=== PATIENT | female | born 1990 | race Caucasian/White ===

== ENCOUNTER 2021-01-09 09:43 | Emergency (ER) | payer OTHER, SELFPAY ==
--- NOTE | ~2021-01-09 | US_ITS ---
EXAMINATION: US PELVIS CLINICAL INFORMATION: Pelvic pain; rule out ovarian torsion COMPARISON: CT 02/01/2017 TECHNIQUE: Transabdominal ultrasound of the pelvis is performed. The patient declined endovaginal examination. FINDINGS: Uterus: The uterus is anteverted and measures 8 x 4.9 x 3.2 cm. The double wall endometrial thickness is 5 mm. The uterus is smooth in contour and has normal myometrial echogenicity. No visible fibroid. Adnexa: Both ovaries are visualized. There is normal color flow to the adnexa. There is no ovarian torsion. There is free fluid in the cul-de-sac. Right ovary measures 3.6 x 3.3 x 1.8 cm. No adnexal mass is seen. Left ovary measures 4 x 2.3 x 2 cm. No adnexal mass is seen. US/US pelvic complete IMPRESSION: No evidence of adnexal mass or ovarian torsion. Small amount of free fluid in the cul-de-sac, nonspecific and possibly physiologic.
--- NOTE | ~2021-01-09 | US_ITS ---
EXAMINATION: US RETROPERITONEAL LIMITED (RENAL ONLY) CLINICAL INFORMATION: Pain. Possible stone. COMPARISON: CT abdomen and pelvis 02/01/2017 TECHNIQUE: Ultrasound of the kidneys is performed using grayscale imaging and color Doppler. FINDINGS: RIGHT KIDNEY: 11.2 x 4.4 x 4.8 cm (SAG x AP x TRV). The kidney is normal in size, contour, and echogenicity. Renal cortical thickness is normal. No calculi or focal parenchymal lesions. No hydronephrosis. LEFT KIDNEY: 11.4 x 5.3 x 5.6 cm (SAG x AP x TRV). The kidney is normal in size, contour, and echogenicity. Renal cortical thickness is normal. No calculi or focal parenchymal lesions. No hydronephrosis. US/US renal BI IMPRESSION: No hydronephrosis or visible calculi.
[2021-01-09 10:53] VITALS: BP 117/72; PULSE 84; RESP 16; TEMP 36.3; O2SAT 100; BMI 25.8
[2021-01-09 11:08] LABS: Appearance Urine CLEAR; Color Urine DK YELLOW; Glucose Urine UA NEG (NEG); Leukocyte Esterase Urine NEG (NEG); PH 5.5 (5.0-8.0); Specific Gravity - Urine 1.025 (1.005-1.025); Urine Blood NEG (NEG); Urine Protein TRACE MG/DL (NEG-TRACE)
[2021-01-09 11:19] LABS: UACC Culture Trigger NO
[2021-01-09 11:20] LABS: RBC Urine 0-2 /HPF (0); Squamous Epithelial Cell Urine 1+ /LPF; WBC Urine 0 /HPF (0-4)
--- NOTE | 2021-01-09 13:05 | ED_ITS ---
HPI - Female Genitourinary General Chief complaint: Urogenital-Female Stated complaint: UTI Time Seen by Provider: 01/09/21 12:35 History of Present Illness HPI Narrative: Patient is a 30-year-old female presents today with having pain on urination. Increasing frequency. Patient was treated for urinary tract infection on Friday with 3 day course of Bactrim. Did not improve. Patient took 1 additional dose of Macrobid from her primary physician. Now is developing low-grade fever now is having nausea, vomiting. Generalized malaise. Positive pain to the flank area. Bilaterally. Patient denies any diaphoresis. Patient does not think she is . No coughing or congestion or upper respiratory symptoms. No significant past medical history. Patient is from home. No vaginal discharge. Patient denies any change in bowel movement. Patient is status post appendectomy. Sexually active 1 partner uses condom some time Related Data Previous Rx's Medication Instructions Recorded ondansetron HCl 4 mg tablet 4 mg PO Q8H PRN #10 tab 01/09/21 (Zofran) Allergies Allergy/AdvReac Type Severity Reaction Status Date / Time sumatriptan [From IMITREX] Allergy Intermediate UNKNOWN Unverified 01/13/20 17:04 kiwi [KIWI] Allergy Mild HIVES Unverified 01/13/20 17:04 omeprazole [From PRILOSEC] Allergy Unknown HIVES Unverified 01/13/20 17:04 prednisone [PREDNISONE] Allergy Unknown BIPOLAR Unverified 01/13/20 17:04 EPISODES SEASONAL ALLERGIES Allergy Intermediate RUNNY NOSE Uncoded 01/13/20 17:04 Review of Systems 2 Review of Systems: Positive subjective fever Positive nausea Positive generalized malaise Positive flank pain Yes all other systems are reviewed and are negative PMFSH Social History Social History Alcohol intake: never Smoked in Last 30 Days: No Use of substances other than those prescribed or required for medical reasons: No Advance Directives: No Advance Directives Information Provided: No Physical Exam Vital Signs: Vital Signs: Last Vital Signs Temp 98.8 F 01/09/21 13:54 Pulse 64 01/09/21 13:54 Resp 16 01/09/21 10:53 BP 114/71 01/09/21 13:54 Pulse Ox 100 01/09/21 10:53 Body Mass Index 25.8 Appearance: Alert. Oriented X3. No acute distress. Eyes: Pupils equal, round and reactive to light. ENT: Pharynx normal. Neck: Normal inspection. Neck supple. No lymph nodes noted. No crepitus CVS: Normal heart rate and rhythm. Pulses normal. Normal S1 and S2 Respiratory: No respiratory distress. Breath sounds normal. No Wheezing. No rales Abdomen: Soft and nontender. No rigidity. No distention. good BS x4 Skin: Skin warm and dry. Normal skin color. Normal skin turgor. Extremities: No lower extremity edema. Neurovascular intact to all extremities. No Lacerations. No Rash Neuro: Oriented X 3. No motor deficit. No sensory deficit. Moving all extermities. No slurred speech MDM - Female Genitourinary MDM Narrative Medical decision making narrative: Patient no distress. White count is normal. Urine negative for infection. Status post appendectomy making appendicitis unlikely. Ultrasound negative for any acute evidence of hydro making renal colic unlikely in the setting of no blood in the urine. No fever no chills. Will send off urine sample for GC chlamydia. Patient denies any vaginal di scharge. Has OBGYN wants to follow up with her. Ultrasound of the pelvis is still pending. Ultrasound of the abdomen positive for small amount of fluid. Will send off GC chlamydia screen. Will discharge patient home. Repeat abdominal exam is soft nontender. Explained to patient's small risk of STDs still exist. Motrin for pain. 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 In stable condition. Differential Diagnosis Differential diagnosis: Likely urinary tract infection, cervicitis, ovarian cyst and ruptured ovarian cyst Lab Data Result diagrams: 01/09/21 13:53 01/09/21 13:53 Labs: Lab Results 01/09/21 01/09/21 01/09/21 Range/Units 11:00 13:53 13:53 WBC 6.9 (4.8-10.8) X10*3/uL RBC 4.48 (4.20-5.50) X10*6/uL Hgb 13.9 (12.0-16.0) g/dl Hct 40.8 (37-47) % MCV 91.1 (80-98) fL MCH 31.0 (27.0-33.0) pg MCHC 34.1 (31.0-35.0) g/dl RDW 12.4 (11.0-16.0) % Plt Count 294 (160-400) X10*3/uL MPV 8.7 L (9.4-12.3) fL Immature Gran % (Auto) 0.6 H (0.0-0.4) % Neut % (Auto) 60.6 (45-73) % Lymph % (Auto) 30.1 (20-40) % Stoddard % (Auto) 7.0 (2-11) % Eos % (Auto) 1.3 (0-4) % Baso % (Auto) 0.4 (0-2) % Lymph # (Auto) 2.1 (1.2-4.9) X10*3/uL Stoddard # (Auto) 0.5 (0.1-1.2) X10*3/uL Eos # (Auto) 0.1 (0.0-0.4) X10*3/uL Baso # (Auto) 0.0 (0.0-0.2) X10*3/uL Abs Immat Gran (auto) 0.04 H (0.00-0.03) X10*3/uL Absolute Neuts (auto) 4.2 (2.0-8.3) X10*3/uL Absolute Nucleated RBC 0.000 (0.0-0.012) X10*3/uL Nucleated RBC % (auto) 0.0 (0.0-0.2) /100WBC Sodium (135-145) mmol/L Potassium (3.3-5.1) mmol/L Chloride (96-108) mmol/L Carbon Dioxide (22-29) mmol/L Anion Gap (12-20) BUN (9-16) mg/dL Creatinine (0.5-1.4) mg/dL Estim Creat Clear Calc Estimated GFR Random Glucose (60-115) mg/dL Calcium (8.4-10.2) mg/dL Total Bilirubin (0.0-1.0) mg/dL Direct Bilirubin (0.0-0.5) mg/dL AST (5-31) U/L ALT (0-31) U/L Alkaline Phosphatase (39-117) U/L Total Protein (6.5-8.0) g/dL Albumin (3.5-5.0) g/dL Urine Color DK YELLOW Urine Appearance CLEAR Urine pH 5.5 (5.0-8.0) Ur Specific [place] 1.025 (1.005-1.025) Urine Protein TRACE (NEG-TRACE) MG/DL Urine Glucose (UA) NEG (NEG) MG/DL Urine Ketones SEE NOTE (NEG) MG/DL Urine Blood NEG (NEG) Urine Nitrite SEE NOTE (NEG) Ur Leukocyte Esterase NEG (NEG) Urine RBC 0-2 (0) /HPF Urine WBC 0 (0-4) /HPF Ur Squamous Epith Cells 1+ /LPF Urine Bacteria NONE /LPF Urine Test NEGATIVE (NEGATIVE) 01/09/21 01/09/21 Range/Units 13:53 13:53 WBC (4.8-10.8) X10*3/uL RBC (4.20-5.50) X10*6/uL Hgb (12.0-16.0) g/dl Hct (37-47) % MCV (80-98) fL MCH (27.0-33.0) pg MCHC (31.0-35.0) g/dl RDW (11.0-16.0) % Plt Count (160-400) X10*3/uL MPV (9.4-12.3) fL Immature Gran % (Auto) (0.0-0.4) % Neut % (Auto) (45-73) % Lymph % (Auto) (20-40) % Stoddard % (Auto) (2-11) % Eos % (Auto) (0-4) % Baso % (Auto) (0-2) % Lymph # (Auto) (1.2-4.9) X10*3/uL Stoddard # (Auto) (0.1-1.2) X10*3/uL Eos # (Auto) (0.0-0.4) X10*3/uL Baso # (Auto) (0.0-0.2) X10*3/uL Abs Immat Gran (auto) (0.00-0.03) X10*3/uL Absolute Neuts (auto) (2.0-8.3) X10*3/uL Absolute Nucleated RBC (0.0-0.012) X10*3/uL Nucleated RBC % (auto) (0.0-0.2) /100WBC Sodium 138 (135-145) mmol/L Potassium 3.9 (3.3-5.1) mmol/L Chloride 108 (96-108) mmol/L Carbon Dioxide 23 (22-29) mmol/L Anion Gap 11 L (12-20) BUN 7 L (9-16) mg/dL Creatinine 0.70 (0.5-1.4) mg/dL Estim Creat Clear Calc 124.1 Estimated GFR > 60 Random Glucose 84 (60-115) mg/dL Calcium 9.4 (8.4-10.2) mg/dL Total Bilirubin 0.6 (0.0-1.0) mg/dL Direct Bilirubin 0.2 (0.0-0.5) mg/dL AST 12 (5-31) U/L ALT 10 (0-31) U/L Alkaline Phosphatase 71 (39-117) U/L Total Protein 7.1 (6.5-8.0) g/dL Albumin 4.4 (3.5-5.0) g/dL Urine Color Cancelled Urine Appearance Cancelled Urine pH Cancelled (5.0-8.0) Ur Specific [place] Cancelled (1.005-1.025) Urine Protein Cancelled (NEG-TRACE) MG/DL Urine Glucose (UA) Cancelled (NEG) MG/DL Urine Ketones Cancelled (NEG) MG/DL Urine Blood Cancelled (NEG) Urine Nitrite Cancelled (NEG) Ur Leukocyte Esterase Cancelled (NEG) Urine RBC (0) /HPF Urine WBC (0-4) /HPF Ur Squamous Epith Cells /LPF Urine Bacteria /LPF Urine Test (NEGATIVE) Discharge Plan Discharge Clinical Impression: Abdominal pain Patient Disposition: Home, Self-Care Instructions: Abdominal Pain (ED) Prescriptions: New ondansetron HCl [Zofran] 4 mg tablet 4 mg PO Q8H PRN (Reason: nausea and vomiting) Qty: 10 RF: 0 Referrals: Yuridia Lara PA-C [Primary Care Provider] - 2 days (Please also follow-up with your OBGYN doctor on an outpatient basis.)
[2021-01-09 13:54] VITALS: BP 114/71; PULSE 64; TEMP 37.1
[2021-01-09] MEDS: Ketorolac Tromethamine 15 MG/ML VIAL 30 MG IVPUSH (14:00)
[2021-01-09] MEDS: ondansetron HCL 4 MG/2 ML VIAL IVPUSH (14:00)
[2021-01-09 14:01] LABS: MANUAL DIFF FLAG NO
[2021-01-09] MEDS: 0.9 % Sodium Chloride 1,000 ML 999 ML IV (14:01)
[2021-01-09 14:09] LABS: Basophils Percent Auto 0.4 % (0-2); Eosinophils Absolute Auto 0.1 X10*3/uL (0.0-0.4); Eosinophils Percent Auto 1.3 % (0-4); Hematocrit 40.8 % (37-47); Hemoglobin 13.9 g/dl (12.0-16.0); Imm Gran Abs Auto 0.04 X10*3/uL (0.00-0.03); Imm Gran Pct Auto 0.6 % (0.0-0.4); Lymphocytes Absolute Auto 2.1 X10*3/uL (1.2-4.9); Lymphocytes Percent Auto 30.1 % (20-40); Mean Corpuscular HGB Conc 34.1 g/dl (31.0-35.0); Mean Corpuscular Volume 91.1 fL (80-98); Mean Platelet Volume 8.7 fL (9.4-12.3); Monocytes Absolute Auto 0.5 X10*3/uL (0.1-1.2); Neutrophils Absolute Auto 4.2 X10*3/uL (2.0-8.3); Neutrophils Percent Auto 60.6 % (45-73); Platelet Count 294 X10*3/uL (160-400); Red Blood Count 4.48 X10*6/uL (4.20-5.50); Red Cell Distribution Width 12.4 % (11.0-16.0); White Blood Count 6.9 X10*3/uL (4.8-10.8)
[2021-01-09 14:10] LABS: UPreg QC Valid YES; Urine Pregnancy NEGATIVE (NEGATIVE)
[2021-01-09 14:21] LABS: Alanine Aminotransferase 10 U/L (0-31); Albumin Level 4.4 g/dL (3.5-5.0); Alkaline Phosphatase 71 U/L (39-117); Anion Gap 11 (12-20); Aspartate Amino Transferase 12 U/L (5-31); Bilirubin Direct 0.2 mg/dL (0.0-0.5); Bilirubin Total 0.6 mg/dL (0.0-1.0); Blood Urea Nitrogen 7 mg/dL (9-16); Calcium 9.4 mg/dL (8.4-10.2); Carbon Dioxide 23 mmol/L (22-29); Chloride 108 mmol/L (96-108); Creatinine Clr Calc Pharmacy 124.1; Estimated Glomerular Filt Rate > 60; Glucose Random 84 mg/dL (60-115); Potassium 3.9 mmol/L (3.3-5.1); Sodium 138 mmol/L (135-145); Total Protein 7.1 g/dL (6.5-8.0)
[2021-01-10 02:43] LABS: CT PCR NOT DETECTED (Not Detect.); NG PCR NOT DETECTED (Not Detect.)
== END 2021-01-09 18:32 | disposition home or self-care (01) ==
PROVIDERS: Emergency Provider Emergency Medicine Emergency Medical Services; PCP Physician Assistant Medical
DX: R10.9 Unspecified abdominal pain (principal); R30.0 Dysuria; Z79.899 Other long term (current) drug therapy
CPT/HCPCS: 36415; 76775; 76856; 80048; 80076; 81001; 81003; 81025; 85025; 87491; 87591; 96361; 96374; 96375; 99284; J1885; J2405

== ENCOUNTER 2021-06-13 09:15 | Outpatient (RCR) | payer OTHER, SELFPAY ==
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
[2021-05-11 13:38] VITALS: BMI 25.0
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
--- NOTE | 2021-05-14 15:39 | HO.PHPPROGNO ---
Subjective Subjective Date of Service: 05/14/21 Reason For Visit: Depression, Anxiety, Bipolar II, PTSD Guardianship: No Medical Problems Affecting Mental Status: No Interim History: Tiffany reports ?I am not doing great, but making it through the day so far. My meds are not working ?. Reports dysphoric, anxious mood. No thoughts of harm to self or others, no safety concern. Medication Compliance: Yes Side effects from medications: No Attending Groups: No Review of Systems Acute medical concerns: No Medical Review of Systems: changed Review of Systems Review of Systems Yes all other systems are reviewed and are negative Constitutional: Reports no additional constitutional complaints Mental Status Exam Mental Status Exam Narrative: Well-developed, well-nourished female, in NAD. No tics/tremors, no involuntary movements noted. Client sitting up, fully attentive during interview. Tearful at times. Patient Appearance: Well Grooomed, Fatigued and Appropriate Patient Orientation: Person, Place, Time and Situation Level of Consciousness: Awake, Appropriate and Alert Patient Behavior: Appropriate, Cooperative, Good Eye Contact and Crying (Tearful at times.) Mood Description: Appropriate, Depressed and Anxious Affect Description: Appropriate, Depressed and Anxious Patient Cognition Impaired: No Ability to Follow Directions: Excellent Speech Pattern: Clear, Appropriate and Coherent Memory Description: Intact Hallucinations: None Thought Process: Rumination Thought Content: positive for Intact Depressive Symptoms: Increased Anxiety, Increased Irritability, Difficulty Sleeping, Crying Spells, Sleeping More Than Usual, Loss of Int. in Activity, Feelings of Worthlessness, Hopelessness, Feelings of Guilt, Unhappiness, Increased Fatigue, Low Self Esteem, Loss of Energy and Difficulty Concentrating Judgement: Fair Diagnostics Vital Signs (24Hr): BMI result Body Mass Index 25.0 Assessment & Plan Assessment & Plan (1) Major depressive disorder, recurrent severe without psychotic features: Status: Acute Code(s): F33.2 - Major depressive disorder, recurrent severe without psychotic features Assessment and Plan: Client continues struggling with dysphoric mood, anxiety. Reports had some vomiting early this morning related to severe anxiety. Took exam and X this morning afterwards, still continues with some anxious mood. No SI today, reports feels safe. Request assistance with [place] paperwork. (2) ALIYAH (generalized anxiety disorder): Status: Acute Code(s): F41.1 - Generalized anxiety disorder Assessment and Plan: Reports current medications are not helping with severe anxiety symptoms. She does see her outpatient provider tomorrow. Discussed adding a p.r.n. medications such as hydroxyzine. She is willing to try it. (3) Chronic post-traumatic stress disorder (PTSD): Status: Acute Code(s): F43.12 - Post-traumatic stress disorder, chronic Assessment and Plan: 1. Start hydroxyzine 50 mg b.i.d. p.r.n. for anxiety. Seven day supply sent to pharmacy. 2. Client to see outpatient provider tomorrow, will follow up as per protocol here. 3. Complete [facility] paperwork and return to client. 4. Continue all other current medications as prescribed. Patient educated on: diagnosis, medication risk/benefits and therapeutic strategies Informed Consent: understands Reason for contiued partial hosp. stay Substantial Risk for: harm to self, inability to function and med/psych decompensation Certification I certify that partial hospital treatment is medically necessary due to the symptoms and problems resulting from the patient's mental illness and the failure to treat the patient at the partial hospital level of care would likely result in the patient requiring inpatient psychiatric care which could not be prevented at a less intensive level of care. I spent minutes with the patient and/or on the patient floor today, greater than?50% of which was spent counseling/coordinating care. Discharge Plan Discharge Attending provider: Ajith Licea Primary Care Provider: Yuridia Lara Medications: New hydroxyzine pamoate [Vistaril] 50 mg capsule 50 mg PO BID PRN (Reason: anxiety) 14 Days Qty: 14 RF: 0 No Action alprazolam [Xanax] 0.5 mg Tablet 0.5 mg PO BID PRN (Reason: Anxiety) RF: 0 propranolol 40 mg Tablet 40 mg PO BEDTIME RF: 0 oxcarbazepine [Trileptal] 600 mg Tablet 300 mg PO DAILY RF: 0 oxcarbazepine [Trileptal] 600 mg Tablet 600 mg PO BEDTIME RF: 0 albuterol sulfate 90 mcg/actuation Hfa Aerosol Inhaler 2 puff INHALATION Q4H PRN (Reason: Shortness Of Breath) RF: 0 propranolol 20 mg Tablet 20 mg PO DAILY RF: 0 bupropion HCl [Wellbutrin XL] 300 mg Tablet Extended Release 24 Hr 300 mg PO QAM RF: 0 bupropion HCl [Wellbutrin XL] 150 mg Tablet Extended Release 24 Hr 150 mg PO DAILY RF: 0 trazodone 50 mg Tablet 50 - 100 mg PO BEDTIME PRN (Reason: Insomnia) RF: 0 buspirone 10 mg Tablet 20 mg PO BID RF: 0 Referrals: Yuridia Lara PA-C [Primary Care Provider] - 1 Week Telehealth Telehealth Location of provider rendering services: practice address Location of patient: address on file Patient Identification confirmed using: Name, : Yes Telehealth method: video Patient verbally consented to treatment: Yes Patient verbally consented to billing insurance company: Yes Patient informed of any privacy concerns related to visit: Yes Time spent with patient (mins): 15
--- NOTE | 2021-05-14 16:42 | PC.NURSE ---
Case opened in treatment team.
--- NOTE | 2021-05-18 12:37 | PC.NURSE ---
Patient reports medication changes made by her outside provider. Patient reports Xanax d/c, added Clonazepam 0.5 mg BID and Oxcarbazapine 300 mg in the afternoo. Ann Blair NP is aware.
--- NOTE | 2021-05-21 13:24 | HO.PHPPROGNO ---
Subjective Subjective Date of Service: 05/21/21 Reason For Visit: Depression, Anxiety, Bipolar II, PTSD Guardianship: No Medical Problems Affecting Mental Status: No Interim History: When asked about mood, reports not really sure . Continues with passive SI. Client reports poor sleep, nightmares. Continues with depressive and anxiety symptoms. AM vomiting has stopped. Reports recent med changes have been somewhat helpful. Side effects from medications: No Attending Groups: Yes Review of Systems Acute medical concerns: No Medical Review of Systems: unchanged Review of Systems Review of Systems Yes all other systems are reviewed and are negative Constitutional: Reports no additional constitutional complaints Mental Status Exam Mental Status Exam Narrative: Well-developed, well-nourished female, in NAD. No tics/tremors, no involuntary movements noted. Client sitting up, fully attentive during interview. Anxious and depressed mood and affect, tearful. Patient Appearance: Well Grooomed and Appropriate Patient Orientation: Person, Place, Time and Situation Level of Consciousness: Awake, Appropriate and Alert Patient Behavior: Appropriate, Cooperative, Good Eye Contact and Crying Mood Description: Depressed and Anxious Affect Description: Depressed and Anxious Patient Cognition Impaired: No Ability to Follow Directions: Excellent Speech Pattern: Clear, Appropriate and Coherent Memory Description: Intact Hallucinations: None Thought Process: Rumination Thought Content: positive for Intact and positive for Suicidal Ideation (passiv, no plan/intent) Depressive Symptoms: Increased Anxiety, Difficulty Sleeping, Crying Spells, Loss of Int. in Activity, Feelings of Worthlessness, Hopelessness, Feelings of Guilt, Unhappiness, Thoughts of /Suicide, Low Self Esteem and Difficulty Concentrating Judgement: Fair Diagnostics Vital Signs (24Hr): BMI result Body Mass Index 25.0 Assessment & Plan Assessment & Plan (1) Major depressive disorder, recurrent severe without psychotic features: Status: Acute Code(s): F33.2 - Major depressive disorder, recurrent severe without psychotic features Assessment and Plan: Continues with dysphoric mood. Met with outpatient psych provider last week, had medication changes. Xanax has been changed to klonopin. Trileptal is now 300mg BID, and 600mg at bedtime. Client reports that her morning nausea and vomiting has resolved somewhat. She believes now that this will allow her to absorb the therapeutic level doses of her medications, as she believes that due to N&V, she had not been able to digest the full doses in the past. She was tearful, and states that she needs to let the medications work . She expressed anxiety regarding being able to return to work in May, and she is afraid that she will not be ready by the time her leave is done. She also reports difficulty dealing with things in my personal life . She states she is trying to use the coping skills learned in groups. Client reports nightmares continue, and poor sleep as a result. Discussed her sleeping medication. She has trazodone 50mg ordered, but she takes only a partial amount, as she feels it makes it too difficult to wake up in the morning if she takes the full dose. She is already taking propanolol 40mg at bedtime, says prazosin makes her blood pressure bottom out due to the other medication. (2) Chronic post-traumatic stress disorder (PTSD): Status: Acute Code(s): F43.12 - Post-traumatic stress disorder, chronic Assessment and Plan: Continues with nightmares r/t ptsd. Unable to wake self up during the nightmares. Assessment and Plan: 1. Continue with current medications as prescribed. 2. Continue with [facility] plan of care. 3. Follow-up as per protocol. Patient educated on: diagnosis, medication risk/benefits and therapeutic strategies Informed Consent: understands Reason for contiued partial hosp. stay Substantial Risk for: harm to self, inability to function and med/psych decompensation Certification I certify that partial hospital treatment is medically necessary due to the symptoms and problems resulting from the patient's mental illness and the failure to treat the patient at the partial hospital level of care would likely result in the patient requiring inpatient psychiatric care which could not be prevented at a less intensive level of care. I spent minutes with the patient and/or on the patient floor today, greater than?50% of which was spent counseling/coordinating care. Discharge Plan Discharge Attending provider: Ajith Licea Primary Care Provider: Yuridia Lara Medications: New hydroxyzine pamoate [Vistaril] 50 mg capsule 50 mg PO BID PRN (Reason: anxiety) 14 Days Qty: 14 RF: 0 No Action propranolol 40 mg Tablet 40 mg PO BEDTIME RF: 0 oxcarbazepine [Trileptal] 600 mg Tablet 300 mg PO DAILY RF: 0 oxcarbazepine [Trileptal] 600 mg Tablet 600 mg PO BEDTIME RF: 0 albuterol sulfate 90 mcg/actuation Hfa Aerosol Inhaler 2 puff INHALATION Q4H PRN (Reason: Shortness Of Breath) RF: 0 propranolol 20 mg Tablet 20 mg PO DAILY RF: 0 bupropion HCl [Wellbutrin XL] 300 mg Tablet Extended Release 24 Hr 300 mg PO QAM RF: 0 bupropion HCl [Wellbutrin XL] 150 mg Tablet Extended Release 24 Hr 150 mg PO DAILY RF: 0 trazodone 50 mg Tablet 50 - 100 mg PO BEDTIME PRN (Reason: Insomnia) RF: 0 buspirone 10 mg Tablet 20 mg PO BID RF: 0 clonazepam 0.5 mg Tablet 0.5 mg PO BID RF: 0 oxcarbazepine 300 mg Tablet 300 mg PO DAILY@1400 RF: 0 Referrals: Yuridia Lara PA-C [Primary Care Provider] - 1 Week Stand Alone Forms: Patient Portal Discharge page Telehealth Telehealth Location of provider rendering services: practice address Location of patient: address on file Patient Identification confirmed using: Name, : Yes Telehealth method: video Patient verbally consented to treatment: Yes Patient verbally consented to billing insurance company: Yes Patient informed of any privacy concerns related to visit: Yes Time spent with patient (mins): 20
--- NOTE | 2021-05-21 15:56 | PC.NURSE ---
I called and spoke with pt. She reports that although she is struggling intensely, the groups have been helpful and she feels supported. 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 She said her employer has not been getting back to her about [place], and I offered help if needed. Discussed possibility of calling the state or her state volunteer patient representative. We agreed on a tentative end date of 06/01/21, given the level of anxiety and passive SI pt is experiencing. We also further discussed aftercare. Pt will call BETTY Velez ([phone]) and I will call and place a referral for [employer].
--- NOTE | 2021-05-21 16:02 | PC.NURSE ---
I called to put in a referral for [facility] for pt to see a therapist. Before the referral can be placed, there is a lot of paperwork they need pt to complete. [facility] will call and speak to pt. I was also told that they will prioritize pt because she is in PHP, but that it will likely still be more than a month.
--- NOTE | 2021-05-25 12:29 | P.PNPSP_ITS ---
Subjective Subjective Date of Service: 05/25/21 Reason For Visit: Depression, Anxiety, Bipolar II, PTSD Guardianship: No Medical Problems Affecting Mental Status: No Interim History: Describes mood as I'm doing okay . Taking medications as prescribed. Reports continued depression and anxiety sx, utilizing hydrixyzine, interested in additional dose. Reports passive SI, no intent/plan. Medication Compliance: Yes Side effects from medications: No Attending Groups: Yes Review of Systems Acute medical concerns: No Medical Review of Systems: unchanged Review of Systems Review of Systems Yes all other systems are reviewed and are negative Constitutional: Reports no additional constitutional complaints Mental Status Exam Mental Status Exam Narrative: Well-developed, well-nourished female, in NAD. No tics/tremors, no involuntary movements noted. Anxious, depressed mood/affect. Patient Appearance: Well Grooomed and Appropriate Patient Orientation: Person, Place, Time and Situation Level of Consciousness: Awake, Appropriate and Alert Patient Behavior: Appropriate, Cooperative and Good Eye Contact Mood Description: Depressed and Anxious Affect Description: Depressed and Anxious Patient Cognition Impaired: No Ability to Follow Directions: Excellent Speech Pattern: Clear, Appropriate and Coherent Memory Description: Intact Hallucinations: None Delusions: Not Present Thought Process: Intact Thought Content: positive for Intact and positive for Suicidal Ideation (passiv, no plan/intent) Depressive Symptoms: Increased Anxiety, Difficulty Sleeping, Crying Spells, Loss of Int. in Activity, Feelings of Worthlessness, Hopelessness, Feelings of Guilt, Unhappiness, Thoughts of /Suicide, Low Self Esteem and Difficulty Concentrating Judgement: Fair Diagnostics Vital Signs (24Hr): BMI result [place] 4 Body Mass Index Verdana 4 25.0 Verdana 4 Verdana 4 Assessment & Plan Assessment & Plan (1) Major depressive disorder, recurrent severe without psychotic features: Status: Acute Code(s): F33.2 - Major depressive disorder, recurrent severe without psychotic features Assessment and Plan: Client continues with symptoms of depression and anxiety. Reports passive SI, no intent or plan at this time. Taking medications as prescribed. Reports continues with anxiety during the day, discussed adding a 3rd dose of p.r.n. hydroxyzine. Patient stated that she believes this will be helpful. Client has submitted [facility] paperwork to be completed. (2) ALIYAH (generalized anxiety disorder): Status: Acute Code(s): F41.1 - Generalized anxiety disorder (3) Bipolar II disorder: Status: Acute Code(s): F31.81 - Bipolar II disorder Plan 1. Increase hydroxyzine to 50 mg t.i.d. p.r.n. for anxiety. Thirty day script sent. 2. Continue all other medications as prescribed by outpatient provider. 3. Continue with current [facility] plan of care. 4. [place] paperwork to be completed by this process description writer and returned. 5. Follow-up as per protocol. Patient educated on: diagnosis, medication risk/benefits and therapeutic strategies Informed Consent: understands Reason for contiued partial hosp. stay Substantial Risk for: harm to self, inability to function and med/psych decompensation Certification I certify that partial hospital treatment is medically necessary due to the symptoms and problems resulting from the patient's mental illness and the failure to treat the patient at the partial hospital level of care would likely result in the patient requiring inpatient psychiatric care which could not be prevented at a less intensive level of care. I spent minutes with the patient and/or on the patient floor today, greater than?50% of which was spent counseling/coordinating care. Discharge Plan Discharge Attending provider: Ajith Licea Primary Care Provider: Yuridia Lara Medications: New hydroxyzine pamoate [Vistaril] 50 mg capsule 50 mg PO TID PRN (Reason: anxiety) 30 Days Qty: 90 0RF No Action propranolol 40 mg Tablet 40 mg PO BEDTIME 0RF oxcarbazepine [Trileptal] 600 mg Tablet 300 mg PO DAILY 0RF Label Comments: Patient stated she is currently taking 300 mg in the am and 600 mg at bedtime. oxcarbazepine [Trileptal] 600 mg Tablet 600 mg PO BEDTIME 0RF albuterol sulfate 90 mcg/actuation Hfa Aerosol Inhaler 2 puff INHALATION Q4H PRN (Reason: Shortness Of Breath) 0RF Rx Instructions: use 30 minutes before exercise. propranolol 20 mg Tablet 20 mg PO DAILY 0RF Label Comments: Patient stated she is currently taking 20 mg in the morning and 40 mg at bedtime. bupropion HCl [Wellbutrin XL] 300 mg Tablet Extended Release 24 Hr 300 mg PO QAM 0RF bupropion HCl [Wellbutrin XL] 150 mg Tablet Extended Release 24 Hr 150 mg PO DAILY 0RF Rx Instructions: Take with 300 mg tab daily. trazodone 50 mg Tablet 50 - 100 mg PO BEDTIME PRN (Reason: Insomnia) 0RF buspirone 10 mg Tablet 20 mg PO BID 0RF Label Comments: Patient has not picked up the prescription as she has been sick with COVID. Rx Instructions: Take 2 tabs Twice a day. clonazepam 0.5 mg Tablet 0.5 mg PO BID 0RF Label Comments: Patient stated her prescribed discontinued xanax and started Clonazepam 0.5 mg BID. oxcarbazepine 300 mg Tablet 300 mg PO DAILY@1400 0RF Label Comments: Patient stated her prescriber added afternoon dose. Rx Instructions: Patient stated she takes daily at 2:00 pm. Referrals: Yuridia Lara PA-C [Primary Care Provider] - 1 Week Stand Alone Forms: Patient Portal Discharge page Telehealth Telehealth Location of provider rendering services: practice address Location of patient: address on file Patient Identification confirmed using: Name, : Yes Telehealth method: video Patient verbally consented to treatment: Yes Patient verbally consented to billing insurance company: Yes Patient informed of any privacy concerns related to visit: Yes Time spent with patient (mins): 20
--- NOTE | 2021-05-29 17:24 | HO.PHPPROGNO ---
Subjective Subjective Date of Service: 05/29/21 Reason For Visit: Depression, Anxiety, Bipolar II, PTSD Interim History: I evaluated the pt this morning and upon interview she reports Im doing okay and that the PRN hydroxyzine and klonopin are currently helping with the anxiety, especially physical sx i.e. vomiting and diarrhea. Says medication doesnt seem to help in a moment of crisis as much and she feels I have to work through it and let the medication work. Pt feels triggered today due to her work sending her more paperwork for her FMLA. 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 For medications, pt says I think everything is working. Taking klonopin as a scheduled med.? Medication Compliance: Yes Side effects from medications: No Attending Groups: Yes Review of Systems Acute medical concerns: No Medical Review of Systems: unchanged Mental Status Exam Mental Status Exam Narrative: Well-developed, well-nourished female, in NAD.? No tics/tremors, no involuntary movements noted.? Anxious, depressed mood/affect.? Patient Appearance:?Well Groomed and Appropriate Patient Orientation:?Person, Place, Time and Situation Level of Consciousness:?Awake, Appropriate and Alert Patient Behavior:?Appropriate, Cooperative and Good Eye Contact Mood Description:?Depressed and Anxious Affect Description:?Depressed and Anxious Patient Cognition Impaired:?No Ability to Follow Directions:?Excellent Speech Pattern:?Clear, Appropriate and Coherent Memory Description:?Intact Hallucinations:?None Delusions:?Not Present Thought Process:?Intact Thought Content:?positive for Intact and positive for Suicidal Ideation (passiv, no plan/intent) Depressive Symptoms:?Increased Anxiety, Difficulty Sleeping, Crying Spells, Loss of Int. in Activity, Feelings of Worthlessness, Hopelessness, Feelings of Guilt, Unhappiness, Thoughts of /Suicide, Low Self Esteem and Difficulty Concentrating Judgment:?Fair Diagnostics Vital Signs (24Hr): BMI result Body Mass Index 25.0 Assessment & Plan Assessment & Plan (1) Major depressive disorder, recurrent severe without psychotic features: Status: Acute Code(s): F33.2 - Major depressive disorder, recurrent severe without psychotic features (2) ALIYAH (generalized anxiety disorder): Status: Acute Code(s): F41.1 - Generalized anxiety disorder (3) Chronic post-traumatic stress disorder (PTSD): Status: Acute Code(s): F43.12 - Post-traumatic stress disorder, chronic Plan Pt presents with symptoms of depression and anxiety.? Hx of passive SI, no intent or plan at this time.? Taking medications as prescribed, reports positive benefit. Provided education on DBT skills today for distress tolerance and reviewed PRN medications for anxiety. Plan 1. Continue hydroxyzine 50 mg t.i.d. p.r.n. for anxiety.? 2. Continue all other medications as prescribed by outpatient provider. 3. Continue with current [facility] plan of care. 4. [facility] paperwork completed 5. Follow-up as per protocol. Patient educated on: diagnosis, medication risk/benefits and therapeutic strategies Certification I certify that partial hospital treatment is medically necessary due to the symptoms and problems resulting from the patient's mental illness and the failure to treat the patient at the partial hospital level of care would likely result in the patient requiring inpatient psychiatric care which could not be prevented at a less intensive level of care. I spent minutes with the patient and/or on the patient floor today, greater than?50% of which was spent counseling/coordinating care. Discharge Plan Discharge Attending provider: Ajith Licea Primary Care Provider: Yuridia Lara Medications: New hydroxyzine pamoate [Vistaril] 50 mg capsule 50 mg PO TID PRN (Reason: anxiety) 30 Days Qty: 90 0RF duloxetine [Cymbalta] 30 mg capsule,delayed release(DR/EC) 30 mg PO DAILY Qty: 14 0RF Discontinued buspirone 10 mg Tablet 20 mg PO BID 0RF Label Comments: Patient has not picked up the prescription as she has been sick with COVID. Rx Instructions: Take 2 tabs Twice a day. No Action propranolol 40 mg Tablet 40 mg PO BEDTIME 0RF oxcarbazepine [Trileptal] 600 mg Tablet 300 mg PO DAILY 0RF Label Comments: Patient stated she is currently taking 300 mg in the am and 600 mg at bedtime. oxcarbazepine [Trileptal] 600 mg Tablet 600 mg PO BEDTIME 0RF albuterol sulfate 90 mcg/actuation Hfa Aerosol Inhaler 2 puff INHALATION Q4H PRN (Reason: Shortness Of Breath) 0RF Rx Instructions: use 30 minutes before exercise. propranolol 20 mg Tablet 20 mg PO DAILY 0RF Label Comments: Patient stated she is currently taking 20 mg in the morning and 40 mg at bedtime. bupropion HCl [Wellbutrin XL] 300 mg Tablet Extended Release 24 Hr 300 mg PO QAM 0RF bupropion HCl [Wellbutrin XL] 150 mg Tablet Extended Release 24 Hr 150 mg PO DAILY 0RF Rx Instructions: Take with 300 mg tab daily. trazodone 50 mg Tablet 50 - 100 mg PO BEDTIME PRN (Reason: Insomnia) 0RF clonazepam 0.5 mg Tablet 0.5 mg PO BID 0RF Label Comments: Patient stated her prescribed discontinued xanax and started Clonazepam 0.5 mg BID. oxcarbazepine 300 mg Tablet 300 mg PO DAILY@1400 0RF Label Comments: Patient stated her prescriber added afternoon dose. Rx Instructions: Patient stated she takes daily at 2:00 pm. Referrals: Yuridia Lara PA-C [Primary Care Provider] - 1 Week Stand Alone Forms: Patient Portal Discharge page
--- NOTE | 2021-06-13 09:30 | PC.NURSE ---
Patient scheduled to discharge from the program today. Feeling anxious about discharge and returning to work. Thinking about starting back to work with decreased hours. Denied SI or thoughts to harm herself. Reviewed patient medications with patient. She reports taking them as prescribed.
--- NOTE | 2021-06-13 13:29 | P.PNPSP_ITS ---
Subjective Subjective Date of Service: 06/13/21 Reason For Visit: Depression, Anxiety, Bipolar II, PTSD Guardianship: No Medical Problems Affecting Mental Status: No Interim History: Tiffany reports she feels ?exhausted? today. States that she feels the Cymbalta is helping, both with anxiety and depressive symptoms as well as with fibromyalgia symptoms. Reports no manic episodes, has been napping more. Denies SI. Experiencing anxiety regarding return to work, asking for reduced work note. Medication Compliance: Yes Side effects from medications: No Attending Groups: Yes Review of Systems Acute medical concerns: No Medical Review of Systems: unchanged Review of Systems Review of Systems Yes all other systems are reviewed and are negative Constitutional: Reports no additional constitutional complaints Mental Status Exam Mental Status Exam Narrative: Well-developed, well-nourished female, in NAD.? No tics/tremors, no involuntary movements noted.? Patient Appearance:?Well Groomed and Appropriate Patient Orientation:?Person, Place, Time and Situation Level of Consciousness:?Awake, Appropriate and Alert Patient Behavior:?Appropriate, Cooperative and Good Eye Contact Mood Description:?Depressed and Anxious, reports improved. Affect Description:?Depressed and Anxious,less noticable. Patient Cognition Impaired:?No Ability to Follow Directions:?Excellent Speech Pattern:?Clear, Appropriate and Coherent Memory Description:?Intact Hallucinations:?None Delusions:?Not Present Thought Process:?Intact, goal oriented, linear. Thought Content:?intact, goal oriented, linear. Depressive Symptoms:?Increased Anxiety, Difficulty Sleeping, Crying Spells, Loss of Int. in Activity, Unhappiness, Low Self Esteem. Judgment:?Good Diagnostics Vital Signs (24Hr): BMI result Body Mass Index 25.0 Assessment & Plan Assessment & Plan (1) Major depressive disorder, recurrent severe without psychotic features: Status: Acute Code(s): F33.2 - Major depressive disorder, recurrent severe without psychotic features Assessment and Plan: Client reports improvement since medication changes during last encounter, with which she had been started on Cymbalta. She reports that the 30 mg dose appears to be working to help improve symptoms, as well as helping with her fibromyalgia symptoms. No thoughts of harm to self or others reported, no safety concerns. She expressed concern regarding returning to work, does not feel she will be capable of handling the stressors of a full-time work schedule at 1st. Disc ussed concerns, I will complete a new set of FMLA paperwork, as well as a return to work note with the following instructions: Return to work date 06/25/2021. Will require to breaks per day, for 15 minutes each. No more than 6 hours in a workday. No more than 5 days in a work week. No physical restrictions. This will be active for 2 weeks, as she becomes acclimated to returning to work force. She was in agreement with these. I told her I will e-mail her the letter and the new completed FMLA paperwork once it is completed. (2) Chronic post-traumatic stress disorder (PTSD): Status: Acute Code(s): F43.12 - Post-traumatic stress disorder, chronic Plan 1. Continue with current medications as prescribed. Refill for Cymbalta [address]/EC sent to pharmacy. 2. [facility] Paperwork will be scanned/emailed to client once it is completed. 3. Client to be discharged from [facility] today. Patient educated on: diagnosis, medication risk/benefits and therapeutic strategies Informed Consent: understands Reason for contiued partial hosp. stay Substantial Risk for: stable for discharge Certification I certify that partial hospital treatment is medically necessary due to the symptoms and problems resulting from the patient's mental illness and the failure to treat the patient at the partial hospital level of care would likely result in the patient requiring inpatient psychiatric care which could not be prevented at a less intensive level of care. I spent minutes with the patient and/or on the patient floor today, greater than?50% of which was spent counseling/coordinating care. Discharge Plan Discharge Attending provider: Ajith Lciea Primary Care Provider: Yuridia Lara Medications: New hydroxyzine pamoate [Vistaril] 50 mg capsule 50 mg PO TID PRN (Reason: anxiety) 30 Days Qty: 90 0RF duloxetine 30 mg capsule,delayed release(DR/EC) 30 mg PO DAILY 30 Days Qty: 30 0RF Discontinued buspirone 10 mg Tablet 20 mg PO BID 0RF Label Comments: Patient has not picked up the prescription as she has been sick with COVID. Rx Instructions: Take 2 tabs Twice a day. No Action propranolol 40 mg Tablet 40 mg PO BEDTIME 0RF oxcarbazepine [Trileptal] 600 mg Tablet 300 mg PO DAILY 0RF Label Comments: Patient stated she is currently taking 300 mg in the am and 600 mg at bedtime. oxcarbazepine [Trileptal] 600 mg Tablet 600 mg PO BEDTIME 0RF albuterol sulfate 90 mcg/actuation Hfa Aerosol Inhaler 2 puff INHALATION Q4H PRN (Reason: Shortness Of Breath) 0RF Rx Instructions: use 30 minutes before exercise. propranolol 20 mg Tablet 20 mg PO DAILY 0RF Label Comments: Patient stated she is currently taking 20 mg in the morning and 40 mg at bedtime. bupropion HCl [Wellbutrin XL] 300 mg Tablet Extended Release 24 Hr 300 mg PO QAM 0RF bupropion HCl [Wellbutrin XL] 150 mg Tablet Extended Release 24 Hr 150 mg PO DAILY 0RF Rx Instructions: Take with 300 mg tab daily. trazodone 50 mg Tablet 50 - 100 mg PO BEDTIME PRN (Reason: Insomnia) 0RF clonazepam 0.5 mg Tablet 0.5 mg PO BID 0RF Label Comments: Patient stated her prescribed discontinued xanax and started Clonazepam 0.5 mg BID. oxcarbazepine 300 mg Tablet 300 mg PO DAILY@1400 0RF Label Comments: Patient stated her prescriber added afternoon dose. Rx Instructions: Patient stated she takes daily at 2:00 pm. Referrals: Yuridia Lara PA-C [Primary Care Provider] - 1 Week Stand Alone Forms: Patient Portal Discharge page Telehealth Telehealth Location of provider rendering services: practice address Location of patient: address on file Patient Identification confirmed using: Name, : Yes Telehealth method: video Patient verbally consented to treatment: Yes Patient verbally consented to billing insurance company: Yes Patient informed of any privacy concerns related to visit: Yes Time spent with patient (mins): 20
--- NOTE | 2021-06-13 16:50 | PC.NURSE ---
I called and left a message for Anthony Castillo CNP, pt's med provider, informing him of pt's discharge today.
--- NOTE | 2021-06-13 23:21 | P.PNPSP_ITS ---
Subjective Subjective Date of Service: 06/05/21 Reason For Visit: Depression, Anxiety, Bipolar II, PTSD Interim History: I evaluated the pt this morning and upon interview she reports her FMLA paperwork is done and she received approval for short term disability, however says her anxiety is ?still super high.? Discussed her diagnosis of bipolar 2 and says she does not agree with this diagnosis, as she denies manic episodes and says she does not have a hx of impulsive or risk taking behavior. Denies hx of hyposomnia. Says she has sx of ?mostly a lot of depression and anxiety.? Says ?I know I have ADHD,? was diagnosed in 4th grade, and discussed that sx of bipolar disorder may overlap. Had a trial on Prozac x 2 weeks, denies it activating manic sx. Says when she got the bipolar diagnosis, it was in part due to her getting a piercing for 300 dollars, this was deemed as impulsive but she says she actually wanted this for a long time. Reports some benefit on wellbutrin, however says feels a ?lull? in the evening. Reports lack of efficacy on buspar. She does report positive benefit on trileptal, as it helps ?with the little bit of irritability that I get,? as she feels irritable when she is anxious, on 300 mg twice a day and 600 at night, however often forgets the middle of the day.? Medication Compliance: Yes Side effects from medications: No Attending Groups: Yes Review of Systems Acute medical concerns: No Medical Review of Systems: unchanged Mental Status Exam Mental Status Exam Narrative: Well-developed, well-nourished female, in NAD.? No tics/tremors, no involuntary movements noted.? Anxious, depressed mood/affect.?Casual dress. Patient Appearance: Well Groomed and Appropriate Patient Orientation: Person, Place, Time and Situation Level of Consciousness: Awake, Appropriate and Alert Patient Behavior: Appropriate, Cooperative and Good Eye Contact Mood Description: Depressed and Anxious Affect Description: Depressed and Anxious Patient Cognition Impaired: No Ability to Follow Directions: Excellent Speech Pattern: Clear, Appropriate and Coherent Memory Description: Intact Hallucinations: None Delusions: Not Present Thought Process: Intact Thought Content: Denies SI Insight: fair Judgment: Fair Diagnostics Vital Signs (24Hr): BMI result Body Mass Index 25.0 Assessment & Plan Assessment & Plan (1) Major depressive disorder, recurrent severe without psychotic features: Status: Acute Code(s): F33.2 - Major depressive disorder, recurrent severe without psychotic features (2) ALIYAH (generalized anxiety disorder): Status: Acute Code(s): F41.1 - Generalized anxiety disorder (3) Chronic post-traumatic stress disorder (PTSD): Status: Acute Code(s): F43.12 - Post-traumatic stress disorder, chronic Plan Pt presents with symptoms of depression and anxiety.? Hx of passive SI, no intent or plan at this time.? Taking medications as prescribed, reports positive benefit. Provided education on DBT skills today for distress tolerance and reviewed PRN medications for anxiety. 1. Continue hydroxyzine 50 mg t.i.d. p.r.n. for anxiety.? 2. Start cymbalta 30 mg QAM for sx of anxiety, depression, may help with chronic pain. Discontinue buspar due to reported lack of benefit. 3. Continue all other medications as prescribed by outpatient provider. 4. Continue with current [facility] plan of care. 5. [facility] paperwork completed 6. Follow-up as per protocol. Certification I certify that partial hospital treatment is medically necessary due to the symptoms and problems resulting from the patient's mental illness and the failure to treat the patient at the partial hospital level of care would likely result in the patient requiring inpatient psychiatric care which could not be prevented at a less intensive level of care. I spent minutes with the patient and/or on the patient floor today, greater than?50% of which was spent counseling/coordinating care. Discharge Plan Discharge Attending provider: Ajith Licea Primary Care Provider: Yuridia Lara Additional Instructions: Appointment for an intake at [facility] ([facility]) on 06/15/21 at 8am. Appointment with med provider, Anthony Castillo CNP ([phone]) on June 28 at 11:15am. Continue to explore [facility] for support. Medications: New hydroxyzine pamoate [Vistaril] 50 mg capsule 50 mg PO TID PRN (Reason: anxiety) 30 Days Qty: 90 0RF duloxetine 30 mg capsule,delayed release(DR/EC) 30 mg PO DAILY 30 Days Qty: 30 0RF Discontinued buspirone 10 mg Tablet 20 mg PO BID 0RF Label Comments: Patient has not picked up the prescription as she has been sick with COVID. Rx Instructions: Take 2 tabs Twice a day. No Action propranolol 40 mg Tablet 40 mg PO BEDTIME 0RF oxcarbazepine [Trileptal] 600 mg Tablet 300 mg PO DAILY 0RF Label Comments: Patient stated she is currently taking 300 mg in the am and 600 mg at bedtime. oxcarbazepine [Trileptal] 600 mg Tablet 600 mg PO BEDTIME 0RF albuterol sulfate 90 mcg/actuation Hfa Aerosol Inhaler 2 puff INHALATION Q4H PRN (Reason: Shortness Of Breath) 0RF Rx Instructions: use 30 minutes before exercise. propranolol 20 mg Tablet 20 mg PO DAILY 0RF Label Comments: Patient stated she is currently taking 20 mg in the morning and 40 mg at bedtime. bupropion HCl [Wellbutrin XL] 300 mg Tablet Extended Release 24 Hr 300 mg PO QAM 0RF bupropion HCl [Wellbutrin XL] 150 mg Tablet Extended Release 24 Hr 150 mg PO DAILY 0RF Rx Instructions: Take with 300 mg tab daily. trazodone 50 mg Tablet 50 - 100 mg PO BEDTIME PRN (Reason: Insomnia) 0RF clonazepam 0.5 mg Tablet 0.5 mg PO BID 0RF Label Comments: Patient stated her prescribed discontinued xanax and started Clonazepam 0.5 mg BID. oxcarbazepine 300 mg Tablet 300 mg PO DAILY@1400 0RF Label Comments: Patient stated her prescriber added afternoon dose. Rx Instructions: Patient stated she takes daily at 2:00 pm. Referrals: Yuridia Lara PA-C [Primary Care Provider] - 1 Week Stand Alone Forms: Patient Portal Discharge page
== END 2021-06-13 23:59 | disposition home or self-care (01) ==
LOC: HO.PHPA 09:15
PROVIDERS: PCP Physician Assistant Medical; Visit Provider Psychiatry & Neurology Psychiatry
DX: F33.2 Major depressive disorder, recurrent severe without psychotic features (principal); F41.1 Generalized anxiety disorder; F43.12 Post-traumatic stress disorder, chronic; F31.81 Bipolar II disorder; Z79.899 Other long term (current) drug therapy
CPT/HCPCS: 90791; 90853

== ENCOUNTER 2023-03-25 13:15 | Outpatient (AMB) | payer BC, SELFPAY ==
[2023-03-25 13:17] VITALS: BP 130/82; PULSE 89; BMI 28.9
--- NOTE | 2023-03-25 13:17 | A.OFFVIS_ITS ---
Intake Vital Signs 03/25/23 13:17 Height 5 ft 7 in Weight 184 lb 4.903 oz BMI 28.9 BP 130/82 Blood Pressure Location Lt brachial Position Sitting Pulse 89 Intake Visit Reasons: NPV/Postural dizziness/L. Ferrari Intake Note: NPV w/ EKG Finish Carpenter Required: No Accompanied by: Self / Same As Patient Allergies sumatriptan [From IMITREX] Allergy (Intermediate, Verified 03/25/23 13:20) UNKNOWN kiwi [KIWI] Allergy (Mild, Verified 03/25/23 13:20) HIVES omeprazole [From PRILOSEC] Allergy (Unknown, Verified 03/25/23 13:20) HIVES prednisone [PREDNISONE] Allergy (Unknown, Verified 03/25/23 13:20) BIPOLAR EPISODES fluoxetine [From Prozac] Allergy (Verified 03/25/23 13:20) Itching latex Allergy (Verified 03/25/23 13:20) Rash SEASONAL ALLERGIES Allergy (Intermediate, Uncoded 03/25/23 13:20) RUNNY NOSE Medication List - Last Reconciled 03/25/23 by Elio Hernandez MD albuterol sulfate 90 mcg/actuation 2 puffs inhalation Q4H PRN bupropion HCl (Wellbutrin XL) 300 mg PO QAM bupropion HCl (Wellbutrin XL) 150 mg PO DAILY clonazepam 0.5 mg PO BID duloxetine 20 mg PO BID hydroxyzine pamoate (Vistaril) 50 mg PO TID PRN 30 days oxcarbazepine 300 mg PO DAILY@1400 propranolol 40 mg PO DAILY HPI HPI Comments History of Present Illness Details Tiffany has been referred to evaluate for any cardiac basis for her several complaints. Patient states that she has a diagnosis of bipolar disorder, but more recently she has been thought to be rather having ADHD. However, even when she was very young, she apparently had ADHD. She has numerous complaints including sensations of not able to breathe normally- that happens very randomly, flushing sensation, tingly hands, cold sensation, hot and cold flashes, exhaustion among others. Whenever she moves too quickly including turning her head, she can get dizzy. She also gets some dizziness when she is trying to get up from lying or seated position. She has asthma as well and that sometimes causes shortness of breath. She feels exhausted all the time. She states she can walk with her dog quit about 10 20 minutes but can do anything too strenuous. She is worried if she has POTS syndrome. She is on several psychiatric medications. She is also on propranolol for migraine. [facility] Medical History (Updated 03/25/23 @ 13:38 by Elio Hernandez MD) Asthma Migraine Primary fibromyalgia syndrome Insomnia Subclinical hyperthyroidism Surgical History (Updated 03/25/23 @ 13:22 by Tonya Garcai) No pertinent past surgical history Family History (Updated 03/25/23 @ 13:22 by Tonya Garcia) Mother No problems noted. Father No problems noted. Social History Household Members: Significant Other and Other Household Members Other:: Boyfriend's sister and fiance Alcohol intake: never Patient Tobacco Use Status: Former Tobacco user Review of Systems Const Denies chills, Denies daytime sleepiness, Denies fatigue, Denies fever(s), Denies frequent falls, Denies night sweats, Denies snoring, Denies weakness, Denies weight gain and Denies weight loss Eyes Denies loss of vision ENT Denies dizziness and Denies hearing loss Card Denies chest pain, Denies chest pain with activity, Denies syncope, Denies rapid heart rate, Denies edema, Denies claudication, Denies leg edema, Denies lightheadedness, Denies palpitations, Denies dyspnea, Denies dyspnea on exertion and Denies orthopnea Resp Denies cough, Denies excessive phlegm production, Denies dyspnea, Denies dyspnea on exertion, Denies snoring and Denies wheezing GI Denies abdominal pain, Denies hematochezia, Denies change in bowel habits, Denies change in stool character, Denies heartburn, Denies nausea and Denies vomiting Denies hematuria, Denies urinary frequency and Denies dysuria Musc Denies arthralgias, Denies muscle weakness, Denies numbness and Denies tingling Skin/Breast Denies nail changes and Denies rash Neuro Denies Abnormal speech present, Denies dizziness, Denies syncope, Denies frequent falls, Denies loss of vision, Denies memory loss, Denies numbness, Denies tingling and Denies weakness Psych Denies depression and Denies memory loss Endo Denies fatigue and Denies palpitations Aller/Immun Denies wheezing Physical Exam Vital Signs: Last Vital Signs Pulse 89 03/25/23 13:17 BP 130/82 03/25/23 13:17 BMI result Body Mass Index 28.9 Const General: comfortable and no acute distress Orientation/consciousness: patient oriented x3 HEENT Other: Unremarkable Head: Yes normal to inspection Neck Neck: Yes normal visual inspection Chest Chest palpation & inspection: normal inspection of the chest Resp Auscultation: clear to auscultation bilaterally Cardio Palpation: normal PMI Heart sounds: S1 normal heart sound present, S2 normal heart sound present, no gallops, no murmurs and no rubs GI Palpation (GI): Soft to palpation Back/Spine/Pelvis Other: unremarkable Skin General skin exam: no rashes or lesions noted Neuro General: patient oriented x3 Speech: No Abnormal speech present Extrem General: Yes normal to inspection Psych Mental Status: mental status grossly normal Office Procedures EKG Details: EKG with sinus rhythm at 89/Min; no significant ST-T changes and otherwise unremarkable[place] [id number], Complete Assessment & Plan Assessment & Plan (1) Dizziness: Code(s): R42 - Dizziness and giddiness (2) ALIYAH (generalized anxiety disorder): Code(s): F41.1 - Generalized anxiety disorder Plan Baseline EKG is unremarkable. Suspect a lot of her symptoms are probably related to underlying psychiatric issues. Less likely that she has a cardiac basis for this. Also doubt if she has any true POTS, as she states that even turning her head makes it dizzy. We will perform a comprehensive workup including an echocardiogram and tilt- table test. If any significant findings, then can reassess. Otherwise, reassured her as much. Orders: Orders ECG Tilt Table Test Today G90.A - Postural orthostatic tachycardia syndrome [POTS] CA echo transthoracic complete Today G90.A - Postural orthostatic tachycardia syndrome [POTS] Coding Level of Care Code New Pt Level 3 (49691) Diagnoses Dizziness R42 ALIYAH (generalized anxiety disorder) F41.1 CPT Codes EKG - CPT: 59858-[id number], Complete ([id number])
== END 2023-03-25 13:47 | disposition home or self-care (01) ==
PROVIDERS: PCP Family Medicine; Visit Provider Internal Medicine
DX: R42 Dizziness and giddiness (principal); F41.1 Generalized anxiety disorder
CPT/HCPCS: 93010; 99203

== ENCOUNTER → 2023-03-25 13:15 | Outpatient (BNVA) | payer BC, SELFPAY | PROVIDERS: PCP Family Medicine; Visit Provider Internal Medicine | DX: F41.1 Generalized anxiety disorder (principal); G90.A Postural orthostatic tachycardia syndrome [POTS] | CPT/HCPCS: 93005 ==

== ENCOUNTER → 2023-04-15 08:07 | Outpatient (REF) | payer BC, SELFPAY ==
--- NOTE | 2023-04-15 08:09 | CA_ITS ---
Transthoracic Echocardiogram Patient (Last, First, Middle): Tiffany Weber A Gender: Female Date of : 1990 Age: 32 Procedure Date: 04/15/2023 Procedure Type: Transthoracic Echocardiogram Location: OP Height: 170.18 cm Weight: 74.84 kg BSA: 1.86 m2 Heart Rate: bpm BP: 124 / 80 mmHg Analytical Consultant: EUGENIO Referring MD: Elio Hernandez MD Car Wiper: Hira Cruz MD Symptoms: G90.A - Postural orthostatic tachycardia syndrome [POTS] Study Quality: Adequate ECG Rhythm: Sinus Conclusions: - Essentially normal study Findings Left Ventricle Normal left ventricular size, thickness, and systolic function. The visually estimated ejection fraction is between 60-65%. Diastolic function is normal for age. Peak GLS is -19.1%, within normal limits. Right Ventricle Normal right ventricular cavity size and systolic function. Atria Both atria are normal in size. Aortic Valve The aortic valve structure and function is likely normal. There is no aortic valve stenosis. There is no aortic valve regurgitation. Mitral Valve Normal mitral valve structure and function. There is no mitral valve regurgitation. There is no mitral valve stenosis. Pulmonic Valve The pulmonic valve is likely normal. There is trace pulmonic valve regurgitation. Tricuspid Valve Normal tricuspid valve structure. There is trace tricuspid valve regurgitation. The right ventricular systolic pressure is normal. The right ventricular systolic pressure is 16 mmHg. Normal right atrial pressure. There is no evidence of pulmonary hypertension. Great Vessels All visible segments of the aorta are normal in size. The visualized portions of the pulmonary artery and branches are normal. Venous The inferior vena cava is normal in size and collapses greater than 50% with inspiration. Pericardium/Pleural There is no evidence of pericardial effusion. Prior Study Comparison No prior study available for comparison. Measurements 2D Linear Measurements IVSd: 0.67 0.6-0.9/0.6-1.0 cm LVIDd: 5.05 3.9-5.3/4.2-5.9 cm LVIDd Index: 2.72 2.4-3.2/2.2-3.1 cm/m2 LVIDs: 3.14 2.0-3.6 cm LVPWd: 0.82 0.7-1.1 cm LA Diam: 3.30 2.7-3.8/3.0-4.0 cm LAIDs Index: 1.77 1.5-2.3 cm/m2 LV Mass: 157.38 67-162/88-224 g LV Mass Index: 84.61 43-95/49-115 g/m2 LVOT Diam: 2.10 3.0+(-)1.3 cm 2D Systolic Function EF 4C: 62.50 >55% EF 2C: 65.50 >55% EF BiP: 63.90 >55% Mitral Valve MV Pk E: 0.79 MV PK A: 0.44 MV Decel Time: 196.00 E/A: 1.80 E'Lateral: 18.00 E'Medial: 12.30 E/E' Med: 6.40 E/E' Lat: 4.40 PHT: 57.00 MVA PHT: 3.86 Decel [place]: 4.02 Aortic Valve AoV Pk Kris: 1.17 AoV Mn Kris: 0.79 AoV VTI: 0.25 AoV Pk Grad: 5.00 Aov Mn Grad: 3.00 SABRINA Cont.VTI: 2.87 LVOT LVOT Pk Kris: 1.04 LVOT Mn Kris: 0.69 LVOT VTI: 0.21 LVOT Pk Grad: 4.00 LVOT Mn Grad: 2.00 LVOT Diam: 2.10 LVOT Area: 3.46 Diastolic Function MV Pk E: 0.79 MV Pk A: 0.44 E/A: 1.80 E'Medial: 12.30 E/E' Med: 6.40 E' Laterial: 18.00 E/E' Lat: 4.40 Right Ventricle TAPSE (mm): 23.50 TVS' Kris: 12.40 Tricuspid Valve TR Pk Kris: 1.83 TR Pk Grad: 13.00 RA Press: 3.00 RVSP: 16.00 Great Vessels Aorta Sinus of Valsalva: 3.14 2.0-3.[address] [place]: 2.72 1.7-3.4 cm Ao Asc: 3.00 2.1-3.4 cm Updated in Other Vendor System with Status of Final Hira Cruz MD electronically signed on 04/16/2023 5:01:29 PM with status of Final
== END ==
LOC: HO.CARD 08:07
PROVIDERS: PCP Physician Assistant Medical; Visit Provider Internal Medicine
DX: G90.A Postural orthostatic tachycardia syndrome [POTS] (principal)
CPT/HCPCS: 93306; 93356

== ENCOUNTER → 2023-04-15 08:09 | Outpatient (BNV) | payer BC, SELFPAY | PROVIDERS: PCP Physician Assistant Medical; Visit Provider Internal Medicine Cardiovascular Disease | DX: G90.A Postural orthostatic tachycardia syndrome [POTS] (principal) | CPT/HCPCS: 93306 ==

== ENCOUNTER 2023-05-29 08:24 | Outpatient (AMB) | payer BC, SELFPAY ==
[2023-05-29 08:30] VITALS: BP 130/80; PULSE 71; BMI 28.8
--- NOTE | 2023-05-29 08:30 | MHC.OFFVIS ---
Intake Vital Signs 05/29/23 08:30 Height 5 ft 7 in Weight 183 lb 13.848 oz BMI 28.8 BP 130/80 Blood Pressure Location Lt brachial Position Sitting Pulse 71 Pulse Source Pulse Oximeter Intake Visit Reasons: f/up tilt/ echo/ HS Cook Jelly Required: No Allergies sumatriptan [From IMITREX] Allergy (Intermediate, Verified 05/29/23 08:33) UNKNOWN kiwi [KIWI] Allergy (Mild, Verified 05/29/23 08:33) HIVES omeprazole [From PRILOSEC] Allergy (Unknown, Verified 05/29/23 08:33) HIVES prednisone [PREDNISONE] Allergy (Unknown, Verified 05/29/23 08:33) BIPOLAR EPISODES fluoxetine [From Prozac] Allergy (Verified 05/29/23 08:33) Itching latex Allergy (Verified 05/29/23 08:33) Rash SEASONAL ALLERGIES Allergy (Intermediate, Uncoded 03/25/23 13:20) RUNNY NOSE Medication List - Last Reconciled 05/29/[address] [employer]-C albuterol sulfate 90 mcg/actuation 2 puffs inhalation Q4H PRN bupropion HCl (Wellbutrin XL) 300 mg PO QAM bupropion HCl (Wellbutrin XL) 150 mg PO DAILY clonazepam 0.5 mg PO BID duloxetine 20 mg PO BID oxcarbazepine 300 mg PO DAILY@1400 propranolol 40 mg PO DAILY HPI f/up tilt/ echo/ HS HPI Details Tiffany is a 32-year-old female with past medical history of anxiety, bipolar and depressive disorder who was recently evaluated for symptoms shortness of breath, dizziness, flushing, tingling. She underwent an echocardiogram and tilt-table test and now presents for follow-up. Today she reports that she continues to have symptoms. She admits to having anxiety and knows that it contributes. She describes dizziness with quick position changes. She has had no presyncope, syncope, falls. No chest discomfort at rest or with activity. She has shortness of breath but also a known history of asthma. She walks her dog for 20 minutes each day which she says she tolerates well. She maintains good hydration. Takes all meds as directed. [facility] Medical History Asthma Migraine Primary fibromyalgia syndrome Insomnia Subclinical hyperthyroidism Surgical History No pertinent past surgical history Family History Mother No problems noted. Father No problems noted. Social History Household Members: Significant Other and Other Household Members Other:: Boyfriend's sister and fiance Alcohol intake: never Patient Tobacco Use Status: Former Tobacco user Review of Systems Const Details: anxiety All systems reviewed & are unremarkable except as noted in HPI and below Reports fatigue ENT Details: flushing sensations Reports dizziness Card Denies chest pain, Denies chest pain at rest, Denies chest pain with activity, Denies rapid heart rate, Denies pedal edema, Denies edema, Denies leg edema, Denies lightheadedness, Denies palpitations, Reports dyspnea, Denies dyspnea on exertion and Denies orthopnea Resp Denies cough, Reports dyspnea and Denies dyspnea on exertion GI Denies hematochezia and Denies change in stool character Musc Details: tingling of hands and feet Denies abnormal gait, Denies limited range of motion, Denies muscle cramps, Denies muscle weakness, Denies numbness, Denies radiating pain into limb, Denies stiffness and Denies tingling Neuro Denies abnormal gait, Reports dizziness, Denies numbness and Denies tingling Endo Reports fatigue and Denies palpitations Physical Exam Vital Signs: Last Vital Signs Pulse 71 05/29/23 08:30 BP 130/80 05/29/23 08:30 BMI result Body Mass Index 28.8 Const General: cooperative, healthy appearing, comfortable and no acute distress Orientation/consciousness: patient oriented x3 Neck Neck: Yes normal visual inspection and Yes no JVD Resp Effort & Inspection: normal respiratory effort Auscultation: clear to auscultation bilaterally, no crackles, no rales, no rhonchi and no wheezes Cardio Jugular venous distension: no JVD Rate: regular rate Rhythm: regular rhythm Heart sounds: S1 normal heart sound present, S2 normal heart sound present, no murmurs and no rubs Neuro General: patient oriented x3 Extrem General: Yes normal to inspection, No no pedal edema and No calf tenderness Psych Appearance: grossly normal Mental Status: mental status grossly normal Speech and movement: Normal speech and movement present Assessment & Plan Assessment & Plan (1) Dizziness: Code(s): R42 - Dizziness and giddiness Plan: Symptoms of dizziness with quick position changes and feeling unwell with prolonged standing. EKG done last visit showed sinus rhythm with no acute ST or T-wave abnormalities, normal MS and QTC intervals. Echocardiogram done 04/15/2023 showed normal study, EF 60-65%. A tilt-table test was done on 05/06/2023 showing appropriate blood pressure and pulse rate response to tilt, no POTS. She did have symptoms during the test which were reported as possibly anxiety related. Today she reports ongoing symptoms of dizziness including intermittent flushing, hot and cold flashes, tingling of hands and feet, fatigue, shortness of breath. Test results reviewed with her in detail. At this time there is no clear cardiac cause for her symptom. She is on multiple medications and may be experiencing various side effects. She will continue to follow with her PCP. Cardiology follow-up will be as needed. (2) Shortness of breath: Code(s): R06.02 - Shortness of breath Plan: As above, can be explained by her asthma. No cardiac cause (3) ALIYAH (generalized anxiety disorder): Code(s): F41.1 - Generalized anxiety disorder Plan: As above Plan Time spent on chart review, documentation, interview and assessment Coding Level of Care Code Est Pt Level 3 (25722) Diagnoses Dizziness R42 Shortness of breath R06.02 ALIYAH (generalized anxiety disorder) F41.1 Time Spent (min) 22
== END 2023-05-29 08:49 | disposition home or self-care (01) ==
PROVIDERS: PCP Family Medicine; Visit Provider Nurse Practitioner Family
DX: R42 Dizziness and giddiness (principal); R06.02 Shortness of breath; F41.1 Generalized anxiety disorder
CPT/HCPCS: 99213

== ENCOUNTER → 2023-05-29 08:24 | Outpatient (BNVA) | payer BC, SELFPAY | PROVIDERS: PCP Family Medicine; Visit Provider Nurse Practitioner Family ==